=== PATIENT | male | born 1945 | race Two or more races ===

== ENCOUNTER 2016-07-22 09:59 | Emergency (ER) | payer SELFPAY ==
[2016-07-22] MEDS ORDERED: Ketorolac INJ* 60 MG/2 ML VIAL ONE (11:28)
[2016-07-22] MEDS ORDERED: Ketorolac INJ* 60 MG/2 ML VIAL IM ONE (11:32)
[2016-07-22] MEDS ORDERED: Ibuprofen TAB* 400 MG PO ONE (11:54)
[2016-07-22] MEDS ORDERED: oxyCODONE/Acetamin 5/325 MG* TAB PO ONE (11:55)
[2016-07-22 12:15] VITALS: BP 144/84
--- NOTE | 2016-07-22 21:26 | ED ---
Skin Complaint - HPI Summary HPI Summary: 70 male presents with complaints of a painful rash on his left neck and posterior head that began approximately Tuesday07/19/16 of this past week while in [place]. Patient states he had a sore muscle that he rubbed cream on that contained Aspirin which he typically gets a rash from for the past 40 years and then shaved and sustained a small cut while doing so in the same area as current rash. A rash appeared that worsened over the next couple of days. He does not know if that is what caused the rash. Complains of it being very painful but does not itch or have any discharge. Denies fever or chills today however does admit to a low grade fever last night 07/21/16. Patient is from and lives in [facility] and is here visiting. He is pretty sure he has never had chicken pox as a child. He has not tried anything else for the rash besides an aspirin that he took earlier this morning. Patient is able to take this however does get a red rash this is not painful, raised, urticaria-like or itchy. So he takes it rarely when needed. No other significant PMHx. Denies any difficulty breathing, swelling of his throat, uritcaria, nausea, vomiting or fever/chills. Denies any spreading of the rash besides on the left side of neck top of shoulder and left side of posterior/parietal head. 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 - Allergy/Home Medications Allergies/Adverse Reactions: Allergies Allergy/AdvReac Type Severity Reaction Status Date / Time Aspirin [ASA] Allergy skin Verified 07/22/16 11:31 coloration change PMH/Surg Hx/FS Hx/Imm Hx Endocrine/Hematology History: Denies: Hx Anemia Cardiovascular History: Denies: Hx Hypertension Respiratory History: Denies: Hx Asthma - Surgical History Surgery Procedure, Year, and Place: none Infectious Disease History: No Infectious Disease History: Denies: Traveled Outside the [place] in Last 30 Days - Family History Known Family History: Positive: None - Social History Alcohol Use: Rare Substance Use Type: Reports: None Smoking Status (MU): Never Smoked Tobacco Review of Systems Positive: Fever, Chills Eyes: Negative ENT: Negative Cardiovascular: Negative Respiratory: Negative Gastrointestinal: Negative Genitourinary: Negative Musculoskeletal: Negative Positive: Rash - painful, red, raised Neurological: Negative Psychological: Normal All Other Systems Reviewed And Are Negative: Yes Physical Exam Triage Information Reviewed: Yes Vital Signs On Initial Exam: Initial Vitals Temp Pulse Resp BP Pulse Ox 99.2 F 83 20 140/69 98 07/22/16 10:04 07/22/16 10:04 07/22/16 10:04 07/22/16 10:04 07/22/16 10:04 low grade temp noted. slightly elevated BP however in pain. Vital Signs Reviewed: Yes Appearance: Positive: Well-Appearing, Well-Nourished, Pain Distress - mild Skin: Positive: Warm, Skin Color Reflects Adequate Perfusion, Dry, Erythema @ - left neck, left scalp posterior and parietal, behind ear and spreading towards top of left shoulder blade. Rasied, vesicular in nature, painful, no current discharge, some crusted, appears to follow dermatome. Also erythema of a different etiology on mid-abdomen straight across non-raised not painful and per patient is the typical rash he has had for the past 40 years when he takes aspirin. non-pruritic no discharge.. Negative: Scaly Skin/Lesions, Weeping Skin /Lesions Head/Face: Positive: Other - rash Eyes: Positive: Normal, EOMI, CARLOS, Conjunctiva Clear ENT: Positive: Normal ENT inspection, Hearing grossly normal, Pharynx normal, TMs normal Neck: Positive: Supple, Nontender, No Lymphadenopathy Respiratory/Lung Sounds: Positive: Clear to Auscultation, Breath Sounds Present Cardiovascular: Positive: Normal, RRR, Pulses are Symmetrical in both Upper and Lower Extremities Abdomen Description: Positive: Nontender Bowel Sounds: Positive: Present Musculoskeletal: Positive: Normal, Strength/ROM Intact Neurological: Positive: Normal, Sensory/Motor Intact, Alert, Oriented to Person Place, Time, CN Intact II-III Psychiatric: Positive: Normal, Affect/Mood Appropriate Diagnostics - Vital Signs Vital Signs Temp Pulse Resp BP Pulse Ox 07/22/16 12:12 99.6 F 78 18 144/84 07/22/16 11:06 16 07/22/16 10:04 99.2 F 83 20 140/69 98 - Laboratory Lab Statement: Any lab studies that have been ordered have been reviewed, and results considered in the medical decision making process. Re-Evaluation - Re-Evaluation First Eval Re-Evaluation Time: 12:10 Change: Improved - andrew relief from toradol Course/Dx - Course Course Of Treatment: rash appeared to be herpes zoster, Dr Montejo also evaluated patient and agreed with this diagnosis. Will be treated with valcyclovir and pain management. Strongly educated how to take medications and aware of worsening symptoms and to return if rash does not subside or gets worse. - Differential Diagnoses - Skin Complaint Differential Diagnoses: Abscess, Allergic Reaction, Cellulitis, Contact Dermatitis, Eczema, Varicella Zoster, Viral Exanthem, Other - Diagnoses Provider Diagnoses: Varicella zoster - Physician Notifications Discussed Care Of Patient With: Dr Montejo 12:00am Discharge - Discharge Plan Condition: Stable Disposition: HOME Prescriptions: ValACYclovir (*) [Valtrex 1 GM(*)] 1 gm PO TID #21 tab oxyCODONE/Acetamin 5/325 MG* [Percocet 5/325 TAB*] 1 tab PO Q4H PRN #30 tab MDD 8 PRN Reason: Pain Patient Education Materials: Shingles (ED) Referrals: No Primary Care Phys,NOPCP [Primary Care Provider] - Additional Instructions: Take prescribed medication (Valacyclovir) three times a day for 7 days. Take EITHER the ibuprofen every 6-8hours as needed for pain OR the Percocet 1 tablet every 4-6hours as needed for pain. If you want to take the ibuprofen during the day and percocet at night you may due so. The Percocet is considered a narcotic and can make you feel "loopy". Do not drive taking this medication. Cold compresses may help. This is can be harmful to women so please try and take precaution. If your pain has not subsided come back to ED and if the rash is getting worse and you do not have any improvement by Next Tuesday please return for further evaluation. If you develop symptoms of difficulty breathing, high fever over 104F or new symptoms please seek medical attention immediately.
== END 2016-07-22 12:12 | disposition home or self-care (01) ==
LOC: ED 09:59
DX: B01.9 Varicella without complication (principal); R21 Rash and other nonspecific skin eruption
CPT/HCPCS: 96374; 96375; 99282; A9270-GY; J1885